=== PATIENT | female | born 1950 | race Caucasian/White ===

== ENCOUNTER → 2020-08-10 | Outpatient (CLI) | payer OTHER ==
--- NOTE | 2020-08-10 10:25 | RAD ---
EXAM DESCRIPTION: Pelvis CLINICAL HISTORY: HIP PAIN COMPARISON: None. TECHNIQUE: AP pelvis FINDINGS: I see no bone joint or soft tissue abnormality. No fracturing is detected. IMPRESSION: Normal pelvis. Electronically signed by: Amol Hernandez MD 08/10/2020 10:24 AM [facility]
--- NOTE | 2020-08-10 10:26 | RAD ---
EXAM DESCRIPTION: Knee,Right Complete CLINICAL HISTORY: KNEE PAIN COMPARISON: None. TECHNIQUE: 4 views right FINDINGS: Loss of medial joint space is observed. Medial tibial osteophyte formation is observed. A small joint effusion is evident. 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 No fracturing is detected. 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 Electronically signed by: Amol Hernandez MD 08/10/2020 10:25 AM [facility]
== END ==
LOC: RAD 08:58
PROVIDERS: ATTEND Orthopaedic Surgery
DX: M17.11 Unilateral primary osteoarthritis, right knee (principal); M25.559 Pain in unspecified hip